=== PATIENT | male | born 1960 | race Caucasian/White ===

== ENCOUNTER 2023-10-22 08:29 | Emergency (ER) | payer BC, SELFPAY ==
[2023-10-22 08:36] VITALS: BP 142/86
[2023-10-22 08:50] LABS: % Basophils 0.6 % (0-2); % Immature Granulocytes 0.3 % (0-0.5); % Monocytes 9.9 % (1.7-9.3); % Neutrophils 53.2 % (42.2-75.2); Absolute Eosinophils 0.1 10^3/uL (0-0.7); Absolute Lymphocytes 2.2 10^3/uL (1.2-3.4); Absolute Monocytes 0.6 10^3/uL (0.1-0.6); Absolute Neutrophils 3.4 10^3/uL (1.4-6.5); Hematocrit 44.1 % (39.0-52.0); Hemoglobin 15.2 g/dL (13.0-18.0); Mean Corp Hgb Conc. 34.5 g/dL (33.0-37.0); Mean Corpuscular Hgb 28.9 pg (27.0-31.0); Mean Corpuscular Volume 83.8 fL (80.0-94.0); Mean Platelet Volume 8.6 fL (7.4-10.4); Nucleated Red Blood Cells % 0 % (-); Platelet Count 281 10^3/uL (130-400); Red Blood Cell Count 5.26 10^6/uL (4.70-6.10); Red Cell Dist. Width 12.2 % (11.5-14.5); White Blood Cell Count 6.4 10^3/uL (4.8-10.8)
--- NOTE | 2023-10-22 09:06 | ED.GENMED ---
History of Present Illness
General
Chief Complaint: Chest Pain
Source: patient
Exam Limitations: none
Time Seen by Provider: 10/22/23 09:06
Nursing documentation reviewed up to this point in time: agreed with
Travel History
Have you had any contact with someone who has COVID-19?: No
Do you have any symptoms of coronavirus? Fever > 100 degrees, chills, cough, shortness of breath, sore throat, loss of taste or smell, muscle aches, or headache?: No
History of Present Illness
History of Present Illness:
62-year-old male with history HLD, arthritis, vasovagal episode on no medication, presents stating he developed mid to left chest pain for an hour yesterday at 1 PM while walking his dog. It was associated with shortness of breath, dizziness nausea
and clamminess. He has felt fatigued since. He did not sleep well but this is not unusual for him. He woke at 3 AM with mid to left chest pain and left arm felt heavy. The chest pain was actually a 'dull pressure' 2-3 out of 10 and has been
consistent since.
At this time he states his chest pressure is 2/10. He denies feeling nauseous or dizzy. He is fatigued.
He has been under extreme stress both with his job and his recently being diagnosed with cancer.
Past History
Past History
ED Past Medical History: Other (melanoma)
ED Past Surgical History: Orthopedic and Other (facial surgery/plastics for melanoma resection)
Social History
Tobacco: Non-smoker
Alcohol: Occasional
Drug: None
Personal:
Living: with family
Employment: Employed
Family History
Family History: Other (Nonsignificant); Negative Early CAD, CAD or Sudden
Review of Systems
Review of Systems
Allergies reviewed?: Yes
All Other Systems: ROS reviewed and negative except as documented in HPI and ROS
Constitutional: Reports fatigue; Denies fever
Respiratory: Denies trouble breathing
Cardiac: Reports chest pain and diaphoresis; Denies palpitations or syncope
ABD/GI: Reports nausea; Denies abdominal pain, vomiting, diarrhea or anorexia
: Denies dysuria or difficulty voiding
Musculoskeletal: Reports no symptoms
Skin: Reports no symptoms
Neurological: Reports no symptoms
Phy Exam
Physical Exam
Physical Exam:
GENERAL: No acute distress. A&Ox3.
CONSTITUTIONAL: Afebrile.
EYES: clear, conjunctivae normal
ENMT: moist mucus membranes
RESPIRATORY: Regular respirations, nonlabored, lungs clear.
CARDIOVASCULAR: Regular rate and rhythm, no murmurs, no rubs.
GI: Soft, nontender, normal BS
MUSCULOSKELETAL: Moves with ease. Well perfused. No edema
SKIN: Warm, dry, pink
PSYCH: Normal mood and affect. Well kept, interactive and appropriate
NEUROLOGIC: Awake, alert and oriented. No focal neurological deficits
Scores
Heart Score for Chest Pain Patients
STEMI patient?: Yes
History: Moderately Suspicious
ECG: Normal
Age: >45 - <65 years
Risk Factors: No Risk Factors
Troponin: </= Normal Limit
Heart Score for Chest Pain Patients: 2
Heart Score Risk: 2.5% MACE over next 6 weeks
Course
Orders/Labs/Results
Orders:
Orders
10/22/23 08:30
EKG [Electrocardiogram (*1)] Urgent
Reason for Study: Chest Pain
EKG- Treatment ONCE
10/22/23 08:42
Complete Blood Count/With Diff Urgent
Comprehensive Metabolic Panel Urgent
Troponin I Urgent
10/22/23 09:15
Aspirin Chewable [Low Strength Aspirin] 324 mg PO NOW STA
Nitroglycerin Sublingual [Nitrostat (Sublingual)] 0.4 mg SL NOW STA
10/22/23 09:21
CR Chest - 2 Views Urgent
Comment:
Reason For Exam: chest pain
10/22/23 09:29
EKG- Treatment ONCE
10/22/23 11:31
Troponin I Urgent
10/22/23 11:40
Electrocardiogram (*1) Urgent
Reason for Study: Chest Pain
Abnormal Lab Results
10/22/23
08:42
Monocytes % 9.9 H %
(1.7-9.3)
10/22/23 08:42
10/22/23 08:42
Vital Signs
Initial and Last Documented VS:
Initial Vital Signs
Temp Pulse Resp BP Pulse Ox
98.1 F 58 16 142/86 98
10/22/23 08:36 10/22/23 08:36 10/22/23 08:36 10/22/23 08:36 10/22/23 08:36
Last Documented Vital Signs
Temp Pulse Resp BP Pulse Ox
98.1 F 53 16 101/68 96
10/22/23 08:36 10/22/23 12:00 10/22/23 12:00 10/22/23 10:00 10/22/23 12:00
MDM/Problems Addressed
Differential Diagnosis Includes:
ACS, GERD, anxiety
MDM/Problems Addressed:
62-year-old male with history HLD, arthritis, vasovagal episode on no medication, presents stating he developed mid to left chest pain for an hour yesterday at 1 PM while walking his dog. It was associated with shortness of breath, dizziness nausea
and clamminess. He has felt fatigued since. He did not sleep well but this is not unusual for him. He woke at 3 AM with mid to left chest pain and left arm felt heavy. The chest pain was actually a 'dull pressure' 2-3 out of 10 and has been
consistent since.
At this time he states his chest pressure is 2/10. He denies feeling nauseous or dizzy. He is fatigued.
He has been under extreme stress both with his job and his recently being diagnosed with cancer.
Records reviewed: Post syncopal episode 06/28/2019 had a normal echocardiogram and a 48-hour Holter monitor showing only extremely rare PACs with 2 brief runs of slow atrial tachycardia. Also normal EEG at that time, per patient, complete neuro and
cardiac workup done at [facility], all negative
10:00 AM
EKG NSR
Troponin #1 negative
CBC normal
CMP normal
Chest x-ray NAD
12:42 PM
Troponin #2 is normal
EKG #2 sinus bradycardia HR 47 otherwise no change
Patient is stable for discharge
Referred to the cardiac hotline
1:12 PM
Called and left message on 's phone to picker and packer [employer] to take daily and let the shipping and receiving clerk know if it helps.
*Critical Care Note
Total Time (30-74mins, 75-104mins- exclusive of procedures): Not Applicable
ED Attending Note
-
Portions of this chart may have been created with voice recognition software.� Occasional wrong word or��sound alike� substitutions may have occurred due to the inherent limitations of voice recognition software.
Discharge Plan
Departure
Patient Disposition: Home (Routine Discharge)
Date of Disposition: 10/22/23
Time of Disposition: 12:44
Patient with high blood pressure during this ER visit?: No
Condition: Good
Discharge Problem:
Atypical chest pain, Stress
Instructions: Chest Pain That Is Not Caused by the Heart (DC), Acid Reflux and GERD in Adults (DC), Relaxation Techniques, Stress, Chest Pain DCA Follow Up
Prescriptions:
New
pantoprazole [Protonix] 20 mg tablet,delayed release (DR/EC)
20 mg PO DAILY Qty: 30 0RF
Referrals:
Kenyon Patiño MD [Family Provider] - As needed
Activity Restrictions/Additional Instructions:
As we discussed, your workup here today shows nothing worrisome.
I am concerned about your stress level. Research some relaxation/stress reduction techniques and use them
I referred you to the cardiology group, someone will call you within the next few days to set you up for a more thorough cardiac evaluation.
Return here immediately for worsening pain, pain associated with nausea, vomiting, breaking out in a sweat, feeling lightheaded or feeling sicker in any way.
Interventions
Interventions:
*Risk Screen - Suicide Last Done: 10/22/23 09:21
*General Assessment Last Done: 10/22/23 09:21
*Neglect/Abuse Screening Last Done: 10/22/23 09:21
ED- Fall Risk Assessment Last Done: 10/22/23 13:13
*ED COVID-19 Vaccine History Last Done: 10/22/23 08:36
*Nursing Disposition Last Done: 10/22/23 13:13
ED- Cardiac Assessment Last Done: 10/22/23 09:23
Discharge Date and Time
Discharge Date/Time: 10/22/23 13:13
Print Language: CUBAN
[2023-10-22 09:14] VITALS: BP 143/95
[2023-10-22 09:16] LABS: Troponin I < 0.012 ng/ml
[2023-10-22] MEDS: LOW STRENGTH ASPIRIN 324 MG PO (09:17)
[2023-10-22] MEDS: NITROSTAT (SUBLINGUAL) 0.400000000000000022 MG SL (09:17)
[2023-10-22 09:20] VITALS: BMI 29.2
[2023-10-22 09:27] LABS: ALT (SGPT) 25 U/L (0-50); AST (SGOT) 28 U/L (17-59); Albumin 4.6 g/dl (3.5-5.0); Alkaline Phosphatase 79 U/L (38-126); Blood Urea Nitrogen 14 mg/dl (9-20); Calcium 9.9 mg/dl (8.4-10.2); Carbon Dioxide 30 mmol/L (22-30); Chloride 101 mmol/L (98-107); Estimated Creatinine Clearance 111 ml/min; Glucose 99 mg/dl (70-99); Potassium 4.6 mmol/L (3.5-5.1); Sodium 135 mmol/L (135-145); Total Bilirubin 0.8 mg/dl (0.2-1.3); Total Protein 6.9 g/dl (6.3-8.2); eGFR > 60.00
[2023-10-22 10:00] VITALS: BP 101/68
[2023-10-22 12:02] LABS: Troponin I < 0.012 ng/ml
== END 2023-10-22 13:13 | disposition home or self-care (01) ==
LOC: EMR 08:29
PROVIDERS: Emergency Medicine; Registered Nurse; EMERGENCY PHYSICIAN Emergency Medicine; FAMILY PHYSICIAN Family Medicine
DX: R07.89 Other chest pain (principal); Z73.3 Stress, not elsewhere classified; E78.5 Hyperlipidemia, unspecified
CPT/HCPCS: 99285; 71046; 80053; 84484; 85025; 93005

== ENCOUNTER → 2024-01-04 06:19 | Day surgery (SDC) | payer BC, SELFPAY | LOC: GI 06:19 | PROVIDERS: ATTENDING PHYSICIAN Internal Medicine; FAMILY PHYSICIAN Family Medicine | DX: Z12.11 Encounter for screening for malignant neoplasm of colon (principal); K57.30 Diverticulosis of large intestine without perforation or abscess without bleeding; D12.0 Benign neoplasm of cecum; D12.8 Benign neoplasm of rectum; Z86.010 Personal history of colon polyps | CPT/HCPCS: 45385; 88305 ==

== ENCOUNTER → 2024-02-04 07:49 | Outpatient (REF) | payer BC, SELFPAY | LOC: RAD 07:49 | PROVIDERS: ATTENDING PHYSICIAN Internal Medicine Interventional Cardiology; FAMILY PHYSICIAN Family Medicine | DX: R07.89 Other chest pain (principal) | CPT/HCPCS: 75574; Q9967 ==

== ENCOUNTER → 2024-03-17 06:53 | Outpatient (REF) | payer BC, SELFPAY | LOC: RCS 06:53 | PROVIDERS: ATTENDING PHYSICIAN Internal Medicine Interventional Cardiology; FAMILY PHYSICIAN Family Medicine | DX: R07.89 Other chest pain (principal); E78.2 Mixed hyperlipidemia | CPT/HCPCS: 78452; 93017; A9500 ==